=== PATIENT | female | born 1970 | race Caucasian/White ===

== ENCOUNTER 2017-01-03 10:10 | Emergency (ER) | payer MEDICARE, OTHER ==
[~2017-01-03] VITALS: Ht 170.2 cm; Wt 113.4 kg
[~2017-01-03 10:10] MED LIST: AZIT500T2 PO; BENZ100C PO; GUAI600T38 PO; HYDR-971 PO; PRED20TA PO
[2017-01-03 10:15] VITALS: BP 159/91
--- NOTE | 2017-01-03 10:20 | PHYS DOC ---
General Chief Complaint: CHEST PAIN Stated Complaint: CHEST PAIN Time Seen by MD: 10:15 Source: patient Exam Limitations: no limitations Problems: History of Present Illness Initial Comments Pt is 46/F to ED via EMS c/o CP. Upon receiving report from EMS I entered basic CP orders. Shortly thereafter I was notified pt suddenly wanted to go home. I saw pt, she requests d/c. She exhibits UCAR capacity of sound mind. I discussed benefits of staying as well as potential risks of leaving AMA including loss of quality of life and . Pt requests d/c AMA No physical exam or further evaluation Allergies: Coded Allergies: No Known Drug Allergies (Unverified , 10/08/14) Past Medical History Medical History: other (arthritis, DM, CAD, HTN) Surgical History: cholecystectomy (hysterectomy CS), other Family History Significant Family History: no pertinent family hx Social History Smoker: non-smoker Alcohol: rarely Drugs: none Orders, Labs, Meds EKG: sinus tachycardia 107 bpm no STEMI Departure Time of Disposition: 10:31 Disposition: 07 AGAINST MEDICAL ADVICE Diagnosis: chest pain Condition: LEFT WITHOUT BEING SEEN Patient Instructions: Discharge Against Medical Advice Additional Instructions: As discussed you have chosen to leave the ED without being seen against medical advice. Risks and benefits of staying vs leaving have been discussed with your, and questions answered. You may return to this ED at any time. Follow up with Dr Serrano tomorrow as scheduled, take meds as prescribed. Return to ED as needed. MARISA PALOMINO DO Jan 03, 2017 10:20
[2017-01-03] MEDS ORDERED: NITROGLYCERIN SUBLINGUAL 0.4 MG BOTTLE OF 25. SL PRN (10:30)
[2017-01-03] MEDS ORDERED: ASPIRIN 81 MG TAB.CHEW PO ONE (10:30)
--- NOTE | 2017-01-03 10:34 | RAD ---
Indication chest pain. A single view of the chest was obtained. No prior imaging of the chest is available. Heart size and pulmonary vessels are normal. Inspiratory effort is not optimal which is likely due to, at least in part, to patient body habitus. A focal process in either lung is not seen. IMPRESSION: No acute or focal process seen in the chest
--- NOTE | 2017-01-03 12:57 | EKG ---
[address] [address] Test Date: 2017-01-03 Test Time: 10:14:17 Pat Name: NAKIA BATEMAN Department: Room: Gender: F [employer]: : 1970 Requested By: MARISA PALOMINO Order Number: [id number] Reading MD: Measurements Intervals Bath Rate: 107 P: 34 TX: 132 QRS: -20 QRSD: 78 T: 88 QT: 346 QTc: 461 Interpretive Statements SINUS TACHYCARDIA LEFT ATRIAL ABNORMALITY LEFTWARD AXIS T ABNORMALITY IN HIGH LATERAL LEADS ABNORMAL ECG RI6.01 Unconfirmed report No previous ECG available for comparison
== END 2017-01-03 10:25 | disposition left against medical advice (07) ==
LOC: ER 10:10
DX: R07.9 Chest pain, unspecified (principal); E11.9 Type 2 diabetes mellitus without complications; M19.90 Unspecified osteoarthritis, unspecified site; I25.10 Atherosclerotic heart disease of native coronary artery without angina pectoris; I10 Essential (primary) hypertension; Z90.49 Acquired absence of other specified parts of digestive tract; Z90.710 Acquired absence of both cervix and uterus
CPT/HCPCS: 71010; 93005; 99284-25

== ENCOUNTER 2017-02-18 08:56 | Emergency (ER) | payer MEDICARE, OTHER ==
[~2017-02-18 08:56] MED LIST changes: -GUAI600T38 PO; +GUAI600T47 PO
--- NOTE | 2017-02-18 09:42 | PHYS DOC ---
Past History Past Medical History: Anxiety, CAD, Diabetes, Hypertension, Other Past Surgical History: , Hysterectomy Alcohol Use: None Drug Use: None Social History Narrative: hx meth use, states none recently Adult General Chief Complaint Chief Complaint: MULTIPLE COMPLAINTS [facility] HPI Patient is a 46 year old female who presents with multiple complaints. Patient states that she is "a mess." Patient's primary complaint is anxiety and stress. Patient states that this is affecting other problems that she has which are chronic including back and neck pain and left side pain. Patient states that she has history of bipolar disorder and she is not currently taking medication. Patient follows at the [facility] in [place], [place] for counseling. She states that she has an appointment on March 21, 2017 but states that she needs to be seen now as she is feeling very stressed and sad. Patient states that today would've been the 3 year anniversary of her marriage with her who is currently estranged. Patient also voices stress and concern due to upcoming events including her daughter's birthday he was about to turn 16. Patient also mentions that she had another daughter who many years ago. Patient states that she is having difficulty coping with all of these emotions which is causing her distress. Patient states that she takes hydrocodone for her chronic back pain and states that she took one prior to arrival. Patient however is asking for help for her psychiatric needs at this time. Review of Systems Review of Systems Constitutional: Denies fever or chills [] Eyes: Denies change in visual acuity, redness, or eye pain [] HENT: Denies nasal congestion or sore throat [] Respiratory: Denies cough or shortness of breath [] Cardiovascular: No additional information not addressed in HPI [] GI: Denies abdominal pain, nausea, vomiting, bloody stools or diarrhea [] : Denies dysuria or hematuria [] Musculoskeletal: Denies back pain or joint pain [] Neurologic: Denies headache, focal weakness or sensory changes [] Psychiatric: Denies suicidal or homicidal ideation[] Allergies Allergies Allergies Coded Allergies Type Severity Reaction Last Updated Verified No Known Drug Allergies 10/08/14 No Physical Exam Physical Exam Constitutional: Alert, afebrile, appears anxious. [] HENT: Normocephalic, atraumatic, bilateral external ears normal, oropharynx moist, no oral exudates, nose normal. [] Eyes: PERRLA, EOMI, conjunctiva normal, no discharge. [] Neck: Normal range of motion, no tenderness, supple, no stridor. [] Cardiovascular:Heart rate regular rhythm, no murmur [] Lungs & Thorax: Bilateral breath sounds clear to auscultation [] Abdomen: Bowel sounds normal, soft, no tenderness, no masses, no pulsatile masses. [] Skin: Warm, dry, no erythema, no rash. [] Back: No tenderness, no CVA tenderness. [] Extremities: No tenderness, no cyanosis, no clubbing, ROM intact, no edema. [] Neurologic: Alert and oriented X 3, normal motor function, normal sensory function, no focal deficits noted. [] Psychologic: Affect normal, judgement normal, mood labile. [] Current Patient Data Vital Signs Vital Signs Date Time Temp Pulse Resp B/P (MAP) Pulse Ox O2 Delivery O2 Flow Rate FiO2 02/18/17 08:56 97.8 71 18 95 Room Air EKG EKG Not performed [] Radiology/Procedures Radiology/Procedures Not performed [] Course & Med Decision Making Course & Med Decision Making Pertinent Labs and Imaging studies reviewed. (See chart for details) The patient initially presented with multiple complaints and voiced many concerns causing her stress and anxiety. After sitting and speaking with the patient regarding her stressors, the patient became more relaxed and even stated that she was feeling better just by being able to talk about what was giving her trouble. She stated that she would be interested in following up with the [facility] for further help. I contacted the [facility] and spoke with Rachel who stated that they had an emergency crisis Center open from 9 AM to 4 PM today. She stated that the patient could walk in to seek services today. Spoke with the patient about this resources and she agreed. The patient will be transferred upon discharge from the emergency Department by private vehicle with her mother to the crisis center today. Advised return to emergency department for any worsening symptoms. Patient voiced understanding and in agreement with treatment plan. Dragon Disclaimer Dragon Disclaimer This chart was dictated in whole or in part using Voice Recognition software in a busy, high-work load, and often noisy Emergency Department environment. It may contain unintended and wholly unrecognized errors or omissions. Departure Departure: Impression: Primary Impression: Anxiety Disposition: 01 HOME, SELF-CARE Condition: IMPROVED Referrals: COBY TOBIN MD (PCP) Patient Instructions: Anxiety and Panic Attacks Additional Instructions: It is recommended that you go to the emergency crisis center at the [facility] immediately upon discharge from the emergency department. The crisis center is open from 9 AM to 4 PM today. Return to the emergency department for any worsening symptoms. JENNIE BARRETO MD February 18, 2017 09:42
[2017-02-18 09:46] VITALS: BP 146/87
== END 2017-02-18 09:46 | disposition home or self-care (01) ==
LOC: ER 08:56
DX: F41.9 Anxiety disorder, unspecified (principal); G89.29 Other chronic pain; E11.9 Type 2 diabetes mellitus without complications; I25.10 Atherosclerotic heart disease of native coronary artery without angina pectoris; I10 Essential (primary) hypertension; F31.9 Bipolar disorder, unspecified
CPT/HCPCS: 99284

== ENCOUNTER 2017-04-22 11:17 | Emergency (ER) | payer MEDICARE, OTHER ==
[~2017-04-22] VITALS: Ht 170.2 cm; Wt 108.9 kg
--- NOTE | 2017-04-22 11:52 | RAD ---
Indication pain. No known injury. AP oblique and lateral views of the right foot were obtained. There is some slight soft tissue swelling. A bony abnormality is not seen
--- NOTE | 2017-04-22 11:56 | PHYS DOC ---
General Chief Complaint: FOOT INJURY PAIN Stated Complaint: FOOT PAIN Time Seen by MD: 11:29 Source: patient Exam Limitations: no limitations Problems: History of Present Illness Initial Comments Patient is a 46-year-old female who comes to the ED complaining of right leg pain. Patient states that for the past 4 days she's had worsening right foot pain. Pain is described as sharp and stabbing patient points out the medial aspect of her right heel. She says the pain is worse when she first stands up from sitting prolonged period, however the worst discomfort is first thing in the morning when she gets out of bed. Pain is described as absent at rest moderate to severe with weightbearing. Wfte-erb-jdumhdw medications haven't been helping she denies recent traumas or prior injury to the foot. She's got no numbness tingling weakness or radiating symptoms. Onset: last week Severity: severe Pain/Injury Location: right heel Method of Injury: unknown Modifying Factors: worse with jarring, worse with movement, improves with rest Allergies: Coded Allergies: No Known Drug Allergies (Unverified , 10/08/14) Past Medical History Medical History: other (anxiety, coronary artery disease, diabetes, hypertension) Surgical History: cholecystectomy (hysterectomy), other Family History Significant Family History: no pertinent family hx Social History Smoker: quit greater than 1 year Alcohol: none Drugs: none Review of Systems Constitutional: denies chills, denies fever Respiratory: denies cough, denies shortness of breath Cardiovascular: denies chest pain, denies palpitations Gastrointestinal: denies nausea, denies vomiting Musculoskeletal: see HPI Skin: denies lesions, denies lumps, denies rash Psychiatric/Neurological: denies numbness, denies paresthesia, denies seizure, denies weakness Physical Exam General Appearance: WD/WN, no apparent distress Neck: non-tender, supple Cardiovascular/Respiratory: normal peripheral pulses, no respiratory distress Back: no CVA tenderness, no vertebral tenderness Ankles: bilateral ankle non-tender, bilateral ankle normal inspection, bilateral ankle normal range of motion, bilateral ankle no evidence of injury Feet: left foot non-tender, left foot normal inspection, left foot normal range of motion, left foot no evidence of injury, right foot other (tenderness to palpation at the insertion of the plantar fascia, there is mild swelling no ecchymosis or skin breaks. No palpable bony or soft tissue deformity no bony tenderness. The extremity is neurovascularly intact.) Neurologic/Tendon: normal sensation, normal motor functions, normal tendon functions, responds to pain, no evidence tendon injury Psychiatric: alert, oriented x 3 Skin: normal color, warm/dry Orders, Labs, Meds PATIENT: NAKIA BATEMAN ACCOUNT: [id number] : 1970 LOCATION: ER AGE: 46 SEX: F EXAM STATUS: PRE ER ORD. PHYSICIAN: MARISA PALOMINO DO REASON: pain PROCEDURE: FOOT RIGHT 3V Indication pain. No known injury. AP oblique and lateral views of the right foot were obtained. There is some slight soft tissue swelling. A bony abnormality is not seen DICTATED AND SIGNED BY: HARVINDER HSU MD DATE: 04/22/17 1145 CC: MARISA PALOMINO DO; COBY TOBIN MD ~ I discussed treatment of this condition at length with the patient. She was advised it'll take 4-6 weeks, exercises were taught and demonstrated. See departure for care plan. Departure Time of Disposition: 12:12 Disposition: 01 HOME, SELF-CARE Diagnosis: plantar fasciitis right lower extremity Condition: GOOD Patient Instructions: Plantar Fasciitis Additional Instructions: Activity as tolerated, no prolonged standing or walking. Ice massage as discussed (frozen water bottle) Belt stretches as demonstrated. OTC arch supports will be required to resolve this condition definitively. You may pick these up at a medical supply store or sporting goods store. Zzav-wgn-[id number] Tylenol and/or ibuprofen as needed for discomfort. Follow-up with your doctor in 2 weeks for recheck. May require injection therapy , MRI, or orthopedics evaluation. Return to the ED with new or changing symptoms. MARISA PALOMINO DO Apr 22, 2017 11:56
[2017-04-22 12:25] VITALS: BP 132/101
== END 2017-04-22 12:30 | disposition home or self-care (01) ==
LOC: ER 11:17
DX: M72.2 Plantar fascial fibromatosis (principal); I25.10 Atherosclerotic heart disease of native coronary artery without angina pectoris; E11.9 Type 2 diabetes mellitus without complications; I10 Essential (primary) hypertension; F41.9 Anxiety disorder, unspecified; Z87.891 Personal history of nicotine dependence
CPT/HCPCS: 73630; 99284

== ENCOUNTER 2017-06-11 13:50 | Emergency (ER) | payer MEDICARE, OTHER ==
[~2017-06-11] VITALS: Ht 170.2 cm; Wt 109.9 kg
[2017-06-11 13:55] VITALS: BP 137/108
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
== END 2017-06-11 16:02 | disposition home or self-care (01) ==
LOC: ER 13:50 → EEVIPCON 13:50 → ER 16:02
DX: S90.02XA Contusion of left ankle, initial encounter (principal); T74.91XA Unspecified adult maltreatment, confirmed, initial encounter; Y08.89XA Assault by other specified means, initial encounter; Y93.89 Activity, other specified; Y92.89 Other specified places as the place of occurrence of the external cause; Y99.8 Other external cause status
CPT/HCPCS: 73610; 99284

== ENCOUNTER 2017-09-24 18:09 | Emergency (ER) | payer MEDICARE, OTHER ==
[~2017-09-24] VITALS: Ht 170.2 cm; Wt 109.9 kg
[2017-09-24 18:21] VITALS: BP 137/108
[2017-09-24] MEDS ORDERED: PRED20TA PO (19:07)
[2017-09-24] MEDS ORDERED: GABA-586 PO (19:07)
[2017-09-24] MEDS ORDERED: CARI350T PO (19:07)
--- NOTE | 2017-09-24 19:09 | PHYS DOC ---
General Chief Complaint: Neck Pain Stated Complaint: TINGLING IN ARM Time Seen by MD: 19:04 Source: patient Exam Limitations: no limitations Problems: History of Present Illness Initial Comments Patient is a 47-year-old female who comes to the ED complaining of neck pain and right arm tingling. Patient states that she has history of disc herniations in her lower cervical spine and has had left arm symptoms in the past. Though symptoms are currently controlled, she states that for the past week or so she's had right sided neck pain with burning and tingling over her right shoulder and that her thumb and index finger have had some tingling. She denies any arm weakness or dropped items, at times she feels electric things down her arm with certain positions. She says that her neck muscles feel tight on the right side she denies any trauma or strenuous activity jarring or other possible causative activities. Sogw-lsr-ajtcabi medications are not helping she says she has an appointment with a new doctor on Tuesday and would like to just get symptomatic treatment until she can get in with her doctor. Her blood pressure is noted to be elevated however she states she's in significant discomfort and denies chest pain shortness of breath focal neurologic deficit. States she does not take any daily medications and denies any substance abuse. Timing/Duration: 1 week Severity: severe Modifying Factors: worse with movement, improves with rest Associated Symptoms: other Allergies: Coded Allergies: No Known Drug Allergies (Unverified , 10/08/14) Past Medical History Medical History: other Surgical History: cholecystectomy, other Family History Significant Family History: no pertinent family hx Review of Systems Constitutional: denies chills, denies fever Respiratory: denies cough, denies shortness of breath Cardiovascular: denies chest pain, denies palpitations Gastrointestinal: denies diarrhea, denies vomiting Musculoskeletal: see HPI Psychiatric/Neurological: see HPI Physical Exam General Appearance: mild distress, obese Neck: non-tender, full range of motion, supple (positive Spurling compression test) Respiratory: normal breath sounds, no respiratory distress Cardiovascular: normal peripheral pulses, regular rate, rhythm Back: no CVA tenderness, no vertebral tenderness Extremities: normal range of motion, non-tender, normal inspection, other ( positive Spurling compression test reproducing right sided neck pain symptoms, decreased sensory on the right at C6 and C7, decrease C8 and T1 on the left there is no muscle weakness.) Neurologic/Psychiatric: 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 I discussed specific stretching exercises as well as prescription and oclp-uyq-iovuyfj medications. Signs and symptoms to monitor as well as indications for urgent return to the department were discussed the patient's questions were answered to her satisfaction. She expressed agreement and understanding with the treatment plan. Departure Time of Disposition: 19:11 Disposition: HOME, SELF-CARE Diagnosis: cervical radiculopathy Condition: GOOD Patient Instructions: Cervical Radiculopathy, Kfbq-qa-Lxam Additional Instructions: Please review the patient education materials given by ED staff. As discussed it appears you may have symptoms related to C6-C7 disc herniation on the right. Activity as tolerated, may need outpatient physical therapy at some point we'll defer to your PCP. Heating pad to affected area 15-20 minutes 4-6 times daily followed by gentle stretching. Prescription: Prednisone, Soma, gabapentin Some of these medications may alter your level of consciousness and coordination , I would advise abstaining from driving or operating machinery while taking these prescriptions. Follow-up with your doctor on Tuesday as scheduled. You will likely need MRI evaluation and if new disc herniation is present pain management consultation for fluoroscopically guided epidural injections. Return to ED with new or changing symptoms. MARISA PALOMINO DO Sep 24, 2017 19:09
[2017-09-24] MEDS ORDERED: GABAPENTIN 100 MG CAPSULE. PO ONE ×2 (19:13→19:30)
[2017-09-24] MEDS ORDERED: CARISOPRODOL 350 MG TABLET ONE (19:13)
[2017-09-24] MEDS ORDERED: predniSONE 10 MG TABLET ONE (19:13)
[2017-09-24] MEDS ORDERED: CARISOPRODOL 350 MG TABLET PO ONE (19:30)
[2017-09-24] MEDS ORDERED: predniSONE 10 MG TABLET PO ONE (19:30)
== END 2017-09-24 19:20 | disposition home or self-care (01) ==
LOC: ER 18:09
DX: M54.12 Radiculopathy, cervical region (principal)
CPT/HCPCS: 99284; J7512

== ENCOUNTER → 2017-11-29 | Outpatient (CLI) | payer MEDICARE, OTHER ==
[~2017-11-29] MED LIST changes: +BUPIVACAINE MPF 0.25% 10 ML VIAL. ONE; +CARI350T PO; +GABA-586 PO; +methylPREDNISolone ACETATE 40 MG/ML VIAL. ONE
== END | disposition home or self-care (01) ==
LOC: SURG 13:30
PROVIDERS: ATTEND Anesthesiology
DX: M79.1 Myalgia (principal); M54.2 Cervicalgia; M19.90 Unspecified osteoarthritis, unspecified site; E11.9 Type 2 diabetes mellitus without complications; Z90.710 Acquired absence of both cervix and uterus; Z98.890 Other specified postprocedural states
CPT/HCPCS: 20553; 99214; J1030; J3490

== ENCOUNTER 2018-04-15 13:07 | Emergency (ER) | payer MEDICARE, OTHER ==
[~2018-04-15] VITALS: Ht 170.2 cm; Wt 109.9 kg
[~2018-04-15 13:07] MED LIST changes: -BUPIVACAINE MPF 0.25% 10 ML VIAL. ONE; -methylPREDNISolone ACETATE 40 MG/ML VIAL. ONE
[2018-04-15] MEDS ORDERED: KETOROLAC 60 MG/2 ML VIAL. IM ONE (14:00)
[2018-04-15] MEDS ORDERED: CYCL-331 PO (14:00)
[2018-04-15] MEDS ORDERED: Percogesic PO (14:00)
[2018-04-15] MEDS ORDERED: methylPREDNISolone SOD SUCC PF 125 MG/2 ML VIAL. IM ONE (14:00)
--- NOTE | 2018-04-15 14:00 | PHYS DOC ---
Past History Past Medical History: Diabetes, Other Additional Past Medical Histor: chronic back pain Past Surgical History: No Surgical History Smoking: Cigarettes Alcohol Use: None Drug Use: None Adult General Chief Complaint Chief Complaint: BACK PAIN OR INJURY [facility] HPI Patient is a [47] year old [female who presents with [increase of chronic back and knee pain. Patient states she ran out of her hydrocodone for chronic low back pain about one week ago and has appointment with care physician in one month because she just moved from [place] to this area. Patient states she has sharp and dull and aching pain in low back without radiation or neurovascular deficit, urinary symptoms, fever and chills, abdominal pain. Patient states her pain is 10 over 10 and did not get better with applied heat, icy hot and over- the-counter pain medication. Review of Systems Review of Systems Constitutional: Denies fever or chills [] Eyes: Denies change in visual acuity, redness, or eye pain [] HENT: Denies nasal congestion or sore throat [] Respiratory: Denies cough or shortness of breath [] Cardiovascular: No additional information not addressed in HPI [] GI: Denies abdominal pain, nausea, vomiting, bloody stools or diarrhea [] : Denies dysuria or hematuria [] Musculoskeletal: Reports back pain or joint pain Integument: Denies rash or skin lesions [] Neurologic: Denies headache, focal weakness or sensory changes [] Endocrine: Denies polyuria or polydipsia [] All other systems were reviewed and found to be within normal limits, except as documented in this note. Allergies Allergies Allergies Coded Allergies Type Severity Reaction Last Updated Verified No Known Drug Allergies 10/08/14 No Physical Exam Physical Exam Constitutional: Well nourished, mild distress, non-toxic appearance, anxious. [ ] HENT: Normocephalic, atraumatic Eyes: PERRLA, EOMI, conjunctiva normal, no discharge. [] Neck: Normal range of motion, no tenderness, supple, no stridor. [] Cardiovascular:Heart rate regular rhythm, no murmur [] Lungs & Thorax: Bilateral breath sounds clear to auscultation [] Abdomen: Bowel sounds normal, soft, no tenderness, no masses, no pulsatile masses. [] Skin: Warm, dry, no erythema, no rash. [] Back: No tenderness, no CVA tenderness, subjective painful range of motion. [] Extremities: No tenderness, no cyanosis, no clubbing, ROM intact, no edema. [] Neurologic: Alert and oriented X 3, normal motor function, normal sensory function, no focal deficits noted. [] Psychologic: Affect anxious, judgement normal, mood normal. [] Current Patient Data Vital Signs Vital Signs Date Time Temp Pulse Resp B/P (MAP) Pulse Ox O2 Delivery O2 Flow Rate FiO2 04/15/18 13:28 97.6 97 20 96 Room Air EKG EKG [] Radiology/Procedures Radiology/Procedures [] Course & Med Decision Making Course & Med Decision Making Evaluation of patient in ER showed 47-year-old female with history of chronic back and lower extremity pain presented to ER with asking for refill of hydrocodone as of change of primary care physician after she moved from [place] to this area. Patient informed that she needs to follow-up with primary care physician for chronic pain management. Patient had pain medication in ER and a short time pain medication for home. Dragon Disclaimer Dragon Disclaimer This electronic medical record was generated, in whole or in part, using a voice recognition dictation system. Departure Departure: Impression: Primary Impression: Exacerbation of chronic back pain Additional Impressions: Chronic knee pain Medication refill Tobacco abuse Tobacco abuse counseling Disposition: HOME, SELF-CARE (At 1420) Condition: STABLE Referrals: PCP,UNKNOWN (PCP) Patient Instructions: Back Pain, Adult, Medication Refill, Emergency Department , Smoking Cessation Additional Instructions: Apply ice on the affected area Follow-up with your primary care physician in 3-5 days Return to ER if not getting better Scripts [Percogesic] No Conflict Check 1 TAB PO QID PRN for PAIN, #14 Prov: MIKAEL REDDY MD 04/15/18 Cyclobenzaprine Hcl (CYCLOBENZAPRINE HCL) 10 Mg Tablet 1 TAB PO TID, #30 TAB Prov: MIKAEL REDDY MD 04/15/18 Problem Qualifiers MIKAEL REDDY MD Apr 15, 2018 14:00
[2018-04-15 14:20] VITALS: BP 171/103
== END 2018-04-15 14:24 | disposition home or self-care (01) ==
LOC: ER 13:07
DX: G89.29 Other chronic pain (principal); M54.5 Low back pain; M25.569 Pain in unspecified knee; E11.9 Type 2 diabetes mellitus without complications; F17.210 Nicotine dependence, cigarettes, uncomplicated; Z76.0 Encounter for issue of repeat prescription; Z71.6 Tobacco abuse counseling
CPT/HCPCS: 96372; 99284; J1885; J2930

== ENCOUNTER 2018-08-25 20:29 | Emergency (ER) | payer MEDICARE, OTHER ==
[~2018-08-25] VITALS: Ht 170.2 cm; Wt 109.9 kg
[~2018-08-25 20:29] MED LIST changes: +CYCL-331 PO; +Percogesic PO
--- NOTE | 2018-08-25 20:35 | ED.ADGEN ---
Past History Past Medical History: Diabetes, Other Additional Past Medical Histor: chronic back pain Past Surgical History: No Surgical History Smoking: Cigarettes Alcohol Use: None Drug Use: None Adult General Chief Complaint Chief Complaint ".. I hurt my knee...".." I tripped and fell 3 days ago.. and my Rt. knee still hurts.." HPI HPI Patient is a 48 year old female who presents with above hx trip and fall 3 days ago. Pt. localizes pain in Rt. lateral collateral ligament. Pt. can do straight leg lift. Pt. has been ambulatory since the trip and fall. Distal neurovascular intact. Pt. does have bilateral ankle edema. Pt. has chronic foot drop on Lt. Pt. does have some bilateral crepitation in ROM with both knees. Pt. has old abrasion on Rt. lateral calf from previous injury a week ago. Pt. denies other injury. Review of Systems Review of Systems Constitutional: Denies fever or chills [] Eyes: Denies change in visual acuity, redness, or eye pain [] HENT: Denies nasal congestion or sore throat [] Respiratory: Denies cough or shortness of breath [] Cardiovascular: No additional information not addressed in HPI [] GI: Denies abdominal pain, nausea, vomiting, bloody stools or diarrhea [] : Denies dysuria or hematuria [] Musculoskeletal: Denies back pain or joint pain [] Pt. complaints of right knee pain Integument: Denies rash or skin lesions [] Neurologic: Denies headache, focal weakness or sensory changes [] Endocrine: Denies polyuria or polydipsia [] All other systems were reviewed and found to be within normal limits, except as documented in this note. Family History Family History Noncontributory Current Medications Current Medications Current Medications Medications (Trade) Dose Ordered Sig/Shannon Start Time Stop Time Status Last Admin Dose Admin Ketorolac Tromethamine (Toradol Im) 60 mg 1X ONCE 08/25/18 21:15 08/25/18 21:16 DC 08/25/18 21:19 60 MG Allergies Allergies Allergies Coded Allergies Type Severity Reaction Last Updated Verified No Known Drug Allergies 10/08/14 No Physical Exam Physical Exam Constitutional: Well developed, well nourished, no acute distress, non-toxic appearance. [] HENT: Normocephalic, atraumatic, bilateral external ears normal, oropharynx moist, no oral exudates, nose normal. [] Eyes: PERRLA, EOMI, conjunctiva normal, no discharge. [] Neck: Normal range of motion, no tenderness, supple, no stridor. [] Cardiovascular:Heart rate regular rhythm, no murmur [] Lungs & Thorax: Bilateral breath sounds clear to auscultation [] Abdomen: Bowel sounds normal, soft, no tenderness, no masses, no pulsatile masses. [] Obese. Skin: Warm, dry, no erythema, no rash. [] Back: No tenderness, no CVA tenderness. [] Extremities: No tenderness, no cyanosis, no clubbing, ROM intact, bilateral ankle edema. [] Foot drop left-chronic. Abrasion right calf. Point tenderness right lateral collateral ligament. Neurologic: Alert and oriented X 3, normal motor function, normal sensory function, no focal deficits noted. [] Psychologic: Affect anxious, judgement normal, mood normal. [] Current Patient Data Vital Signs Vital Signs Date Time Temp Pulse Resp B/P (MAP) Pulse Ox O2 Delivery O2 Flow Rate FiO2 08/25/18 20:47 97.7 120 18 97 Room Air EKG EKG [] Radiology/Procedures Radiology/Procedures My interpretation of knee films shows degenerative joint changes. No obvious displaced fracture.[] Course & Med Decision Making Course & Med Decision Making Pertinent Labs and Imaging studies reviewed. (See chart for details) Ice packs as needed. Rest and elevation. Take Tylenol and ibuprofen. For marked discomfort take Vicoprofen up to 4 times a day. Wear Leonel wrap. Follow up with primary. Follow-up orthopedics. Patient to follow-up- started meniscus tear or injury or internal disruption could not be eliminated on current exam. [] Final Impression Final Impression 1. Right collateral lateral ligament strain-[] Dragon Disclaimer Dragon Disclaimer This electronic medical record was generated, in whole or in part, using a voice recognition dictation system. KELLI OROZCO MD Aug 25, 2018 20:35
[2018-08-25] MEDS ORDERED: HYDR-79 PO (21:09)
--- NOTE | 2018-08-25 21:14 | RAD ---
KNEE RIGHT 4V History: right knee pain due to fall x4 days Comparison: None. Findings: 4 views right knee are submitted. There is mild osteoarthritic change. No acute fracture or dislocation is identified by radiograph. Impression: 1. No acute osseous abnormality is identified by radiograph. There is osteoarthritic change. Electronically signed by: Bolivar Nicholas MD (08/25/2018 9:10 PM) [facility]
[2018-08-25] MEDS: KETOROLAC 60 MG/2 ML VIAL. IM ONE (21:19)
[2018-08-25 21:20] VITALS: BP 148/84
== END 2018-08-25 21:22 | disposition home or self-care (01) ==
LOC: ER 20:29
DX: S86.811A Strain of other muscle(s) and tendon(s) at lower leg level, right leg, initial encounter (principal); M21.372 Foot drop, left foot; E11.9 Type 2 diabetes mellitus without complications; G89.29 Other chronic pain; F17.210 Nicotine dependence, cigarettes, uncomplicated; W01.0XXA Fall on same level from slipping, tripping and stumbling without subsequent striking against object, initial encounter; Y93.89 Activity, other specified; Y92.89 Other specified places as the place of occurrence of the external cause; Y99.8 Other external cause status
CPT/HCPCS: 73564; 96372; 99284; J1885